=== PATIENT | male | born 1995 | race Caucasian/White ===

== ENCOUNTER 2018-02-03 02:50 | Emergency (ER) | payer SELFPAY ==
--- NOTE | 2018-02-03 02:55 | EDPHY ---
H & P Time Seen by Provider: 02/03/18 02:53 HPI/ROS: HPI CHIEF COMPLAINT: Alcohol Intoxication HISTORY OF PRESENT ILLNESS: Patient very pleasant 22-year-old male, is otherwise healthy without any significant medical history police found him up on the hill in [place] lying on a bike path. There is no trauma reported. Patient reports that he was with his friends this evening he had multiple shots of liquor he states he did become intoxicated. He is brought to the emergency room as EMS arrived and evaluated him and he was unable to walk slight thought he was not cleared up to go to detox. Upon arrival to the Emergency is able to ambulate perfectly to his ER room stretcher 4. He has no complaints there is no trauma reported. He is answer my questions appropriately he is clinically sober. He is safe for disposition to the [facility]. Denies drug use. Past Medical History: No significant medical history Past Surgical History: Denies significant surgical history Social History: [employer] student, denies daily use of alcohol drugs or tobacco. Alcohol this evening. Family History: Noncontributory ROS REVIEW OF SYSTEMS: A comprehensive 10 point review of systems is otherwise negative aside from elements mentioned in the history of present illness. Exam Constitutional Intoxicated, triage nursing summary reviewed, vital signs reviewed, Sleepy, smells of alcohol Eyes normal conjunctivae and sclera, horizontal beating nystagmus consistent acute alcohol intoxication, otherwise pupils equal and react to light HENT normal inspection, atraumatic, moist mucus membranes, no epistaxis, neck supple/ no meningismus, no raccoon eyes. Respiratory clear to auscultation bilaterally, normal breath sounds, no respiratory distress, no wheezing. Cardiovascular rate normal, regular rhythm, no murmur, no edema, distal pulses normal. Gastrointestinal soft, non-tender, no rebound, no guarding, normal bowel sounds, no distension, no pulsatile mass. Genitourinary no CVA tenderness. Musculoskeletal no midline vertebral tenderness, full range of motion, no calf swelling, no tenderness of extremities, no meningismus, good pulses, neurovascularly intact. Skin pink, warm, & dry, no rash, skin atraumatic. Neurologic intoxicated with alcohol,, alert and oriented x 3, AAOx3, moves all 4 extremities equally, motor intact, sensory intact, CN II-XII intact, , normal vision, normal speech. Psychiatric normal mood/affect. Heme/Lymph/Immune no lymphadenopathy. Differential Diagnosis: Includes but is not limited to in a particular order acute alcohol intoxication, alcohol abuse, dehydration, electrolyte abnormality , nausea vomiting from acute alcohol intoxication Medical Decision Making: Plan for this patient he has a very steady gait, answers my questions appropriately his breath alcohol is 220. He has no ataxia when he walks. He is calm and cooperative. He is not lethargic. His vital signs are stable. He is safe to be dispositioned to the [facility]. Breath alcohol 220. Source: Patient, EMS Departure - Departure Disposition: Home, Routine, Self-Care Clinical Impression: Alcoholic intoxication Qualifiers: Complication of substance-induced condition: uncomplicated Qualified Code(s): F10.920 - Alcohol use, unspecified with intoxication, uncomplicated Condition: Good Instructions: Alcohol Intoxication (ED) Referrals: Patient,NotPresent [Primary Care Provider] - As per Instructions
[2018-02-03 02:58] VITALS: BP 140/81
== END 2018-02-03 03:16 | disposition home or self-care (01) ==
DX: F10.920 Alcohol use, unspecified with intoxication, uncomplicated (principal)